=== PATIENT | male | born 1990 | race Caucasian/White ===

== ENCOUNTER 2021-02-02 17:31 | Emergency (ER) | payer OTHER, SELFPAY ==
[2021-02-02 17:36] VITALS: BP 147/89; PULSE 98; RESP 20; TEMP 37.1; O2SAT 99
--- NOTE | 2021-02-02 17:49 | ED.GENADUL_ITS ---
Discharge Plan Disposition Patient Disposition: HOME Condition: Stable Discharge Details Clinical Impression: Conjunctivitis Primary Care Provider: [facility] Provider: Sheila Floyd Home Meds and New Rx's Prescriptions: No Action No Known Home Meds RF: 0 Discharge Instructions Instructions: Erythromycin (Into the eye), Conjunctivitis (ED) Additional Instructions: Your eye exam today is concerning for injected and goopy eye. I am concerned that you may have a bacterial infection in your eye. Please apply the erythromycin ointment to the eye 4 times a day for 5 days. Please follow-up with primary care next week for reevaluation. If you develop fever/chills, visual changes, headache, increased pain or other new/worsening symptoms to seek care urgently once again. Warm or cool compresses to eye to help with symptom management. Medical Decision Making Patient is a pleasant 30-year-old male presenting chief complaint of left eye irritation. He reports this initially began approximately 3 days ago but had initially begun to improve. However, after being exposed to an irritant again today the symptoms came back and are worse at this time. Denies any visual changes. Has noted some discharge. No fevers or chills. Denies any pain or foreign body sensation. No pain in the eye. No trauma. On exam, patient appears nontoxic. He does have injection of the left eyes. He also has a thick purulent discharge appreciated. No surrounding erythema or involvement of the eyelid. Pupils are equal round and reactive. Extraocular movements are intact. Patient and I discussed differential diagnosis. The discharge and itchiness of the eyes most consistent for a bacterial conjunctivitis. He is not having any pain or evidence to suggest acute glaucoma, trauma. No foreign body sensation. Plan to treat the patient for infection with erythromycin. Return precautions were discussed. Patient does not wear contacts. He will follow-up with primary care when she returns home. All the questions and concerns were addressed and he is in agreement with this plan. HPI General Mode of arrival: ambulatory . Date/Time Provider Initiated Documentation: 02/02/21 17:48 . Limitations to Documentation: no limitations . Information obtained by: patient and RN notes reviewed . History of Present Ill ness 30 year old M presents to the emergency department with the chief complaint of left eye irritation, described as moderate, with intensity rated at 4. Quality is described as other (itching), and is localized to the eyes. Patient reports no radiation. Patient started experiencing this day(s) and it has been intermittent. No relieving factors improve symptom(s), No exacerbating factors reported . Patient notes no other symptoms.. Patient did receive the following treatments prior to arrival, none Related Data Home Medications Medication Instructions Recorded Confirmed Unknown [No Known Home Meds] 02/02/21 02/02/21 Allergies Allergy/AdvReac Type Severity Reaction Status Date / Time cat dander AdvReac Mild watery/itchy Unverified 02/02/21 17:44 eyes - runny nose pollen extracts AdvReac Mild watery/itchy Unverified 02/02/21 17:44 eyes - runny nose General Stated Complaint: EyeProblem ALMAZ: 4 Review of Systems Constitutional Constitutional: Reports as per HPI, Denies chills, Denies fatigue, Denies fever(s) and Denies headache(s) Eyes Eyes: Reports as per HPI ENT Ears, Nose, Mouth, and Throat: Denies headache(s) Cardiovascular Cardiovascular: Reports as per HPI, Denies chest pain and Denies lightheadedness Respiratory Respiratory: Denies cough Integumentary/Breasts Skin/Breast: Reports as per HPI, Denies rash, Denies skin pain and Denies skin swelling Neurologic Neurologic: Denies headache(s) and Denies radicular pain Endocrine Endocrine: Denies fatigue [facility] Social History Smoking/Tobacco Use Status: Never Smoking risk assessment performed?: Yes Alcohol Intake: current Alcohol Intake frequency: a few times a month Drug use: Never Substance use type: does not use Do you feel safe at home: Yes Do you feel safe in your relationship?: Yes Exam Const General: cooperative, healthy appearing, comfortable, no acute distress, well developed and well groomed Nutritional Appearance: average body habitus and well nourished Orientation: alert, awake and oriented x3 HENMT Head: normal to inspection, normocephalic and atraumatic Ears: hearing grossly normal bilaterally and external ears normal General nose exam: external nose normal and nares normal Face and sinus: normal facial exam and face symmetric Mouth: lip normal Eyes Visual Wills: normal visual wills by confrontation Alignment and Position: alignment normal and position normal Periorbital: periorbital findings normal Eyelids: eyelids normal Conjunctivae: conjunctival abnormality left conjunctival injection diffuse Pupils: PERRL and normal by confrontation EOM: EOM intact bilaterally Resp Effort & Inspection: normal respiratory effort, able to speak in complete sentences and no respiratory distress Skin General skin exam: no rashes or lesions noted Neuro General: patient alert, patient awake and patient oriented x3 Cranial Nerves: CN's II-XI intact bilaterally Cognition: normal cognition Speech: speech normal Gait: normal gait Psych Appearance: grossly normal and well kempt Mental Status: mental status grossly normal Speech and Movement: speech and movement normal Course Vital Signs Vital signs: Vital Signs Temperature 37.1 C 02/02/21 17:36 Pulse 98 H 02/02/21 17:36 Respiratory Rate 20 02/02/21 17:36 Blood Pressure 147/89 H 02/02/21 17:36 Pulse Oximetry 99 02/02/21 17:36 Temperature 37.1 C 02/02/21 17:36 Temperature Source Skin 02/02/21 17:36 Pulse 98 H 02/02/21 17:36 Respiratory Rate 20 02/02/21 17:36 Respiratory Effort 02/02/21 17:45 Blood Pressure 147/89 H 02/02/21 17:36 Blood Pressure Position Sitting 02/02/21 17:36 Pulse Oximetry 99 02/02/21 17:36 Oxygen Delivery Method Room Air 02/02/21 17:36 Oxygen Flow Rate 0 02/02/21 17:36 Pain Level 4 02/02/21 17:36
[2021-02-02] MEDS: Erythromycin Ophth Oint 3.5 GM TUBE OS (18:57)
== END 2021-02-02 18:45 | disposition home or self-care (01) ==
LOC: ER 18:27
PROVIDERS: Emergency Provider Physician Assistant; Referring Provider Physician Assistant
DX: H10.32 Unspecified acute conjunctivitis, left eye (principal)
CPT/HCPCS: 99283